=== PATIENT | male | born 1960 | race Caucasian/White ===

== ENCOUNTER 2017-12-13 12:38 | Emergency (ER) | payer SELFPAY ==
[~2017-12-13] VITALS: Ht 162.6 cm; Wt 73.5 kg
[~2017-12-13 12:38] MED LIST: CARV3.12 PO; FLUT1INH INH; METH750T2 PO; MOBI15TA PO
[2017-12-13 12:50] VITALS: BP 140/85; PULSE 75; RESP 18; TEMP 98.2; O2SAT 95
--- NOTE | 2017-12-13 13:50 | PD ---
HPI Chief Complaint: Respiratory Symptoms Time Seen by Provider: 13:41 Travel History International Travel<30 days: No Contact w/Intl Traveler<30days: No Traveled to known affect area: No History of Present Illness HPI 57-year-old male states over the past couple of days he's been having cough, congestion and shortness of breath. He states it fluctuates in intensity. He denies any other concurrent complaints. He states he feels worse when he moves around. He denies other modifying factors. He states he has not seen his physician for this yet. Quality is productive. Severity is intermittent in nature. He denies increased use in his inhaler use. PFSH Past Medical History Hx Anticoagulant Therapy: Yes (asa 81mg) Arthritis: No Asthma: No Autoimmune Disease: No Blood Disorders: No Anxiety: Yes (IN THE PAST) Depression: Yes Heart Rhythm Problems: No Cancer: No Cardiovascular Problems: Yes (hx of htn on no meds) High Cholesterol: Yes (MD TOLD HIM IT WAS HIGH BUT HE DID NOT TAKE ANY MEDS FOR THIS CONDITION) Chest Pain: Yes Congestive Heart Failure: No COPD: Yes Cerebrovascular Accident: Yes Diabetes: No Diminished Hearing: No Endocrine: No Gastrointestinal Disorders: No GERD: No Glaucoma: No Genitourinary: No Headaches: Yes Hepatitis: No Hiatal Hernia: No Hypertension: Yes Immune Disorder: No Implanted Vascular Access Dvce: No Kidney Stones: No Musculoskeletal: Yes Neurologic: Yes [facility] Reproductive: No Respiratory: Yes (copd) Immunizations Current: Yes Migraines: Yes Myocardial Infarction: No Renal Failure: No Seizures: No Sickle Cell Disease: No Sleep Apnea: No Thyroid Disease: No Ulcer: No Past Surgical History Abdominal Surgery: No AICD: No Appendectomy: No Arteriovenous Shunt: No Cardiac Surgery: No Cholecystectomy: No Ear Surgery: No Endocrine Surgery: No Eye Surgery: No Genitourinary Surgery: No Gynecologic Surgery: No Insulin Pump: No Joint Replacement: No Neurologic Surgery: Yes (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) Oral Surgery: No Pacemaker: No Thoracic Surgery: No Other Surgery: Yes Social History Alcohol Use: No Tobacco Use: Yes (1PPD) Substance Use: Yes (PAST ETOH ABUSE) Allergies-Medications (Allergen,Severity, Reaction): Coded Allergies: No Known Allergies (Verified Adverse Reaction, Unknown, 12/13/17) Reported Meds & Prescriptions Reported Meds & Active Scripts Active Ventolin Hfa 18 GM Inh (Albuterol Sulfate) 90 Mcg/Act Aer 2 Puff INH Q4-6H PRN Methocarbamol 750 Mg Tab 750 Mg PO QID Mobic (Meloxicam) 15 Mg Tab 15 Mg PO DAILY Reported Breo Ellipta 100-25 Mcg/INH (Fluticasone Furoate-Vilanterol) 1 Inh Inh Unknown Dose INH DAILY Carvedilol 3.125 mg (Carvedilol) 3.125 Mg Tab 3.125 Mg PO BID Review of Systems Except as stated in HPI: all other systems reviewed are Neg Physical Exam Narrative GENERAL: 57-year-old male in no apparent distress SKIN: Focused skin assessment warm/dry. HEAD: Atraumatic. Normocephalic. EYES: Pupils equal and round. No scleral icterus. No injection or drainage. ENT: No nasal bleeding or discharge. Mucous membranes pink and moist. Bilateral TMs clear, posterior oropharynx without exudate or erythema NECK: Trachea midline. No JVD. No meningeal signs CARDIOVASCULAR: Regular rate and rhythm. RESPIRATORY: No accessory muscle use. Clear to auscultation. Breath sounds equal bilaterally. GASTROINTESTINAL: Abdomen soft, non-tender, nondistended. MUSCULOSKELETAL: No obvious deformities. No clubbing. No cyanosis. No edema. NEUROLOGICAL: Awake and alert. No obvious cranial nerve deficits. Motor grossly within normal limits. Normal speech. Data Data Last Documented VS Vital Signs Date Time Temp Pulse Resp B/P (MAP) Pulse Ox O2 Delivery O2 Flow Rate FiO2 12/13/17 14:05 16 96 Room Air 12/13/17 12:50 98.2 75 140/85 (103) Orders Orders Chest, Pa & Lat (12/13/17 ) Influenzae A/B Antigen (12/13/17 13:41) Ed Discharge Order (12/13/17 14:38) MDM Medical Decision Making Medical Screen Exam Complete: Yes Emergency Medical Condition: Yes Medical Record Reviewed: Yes (past history confirmed) Interpretation(s) cxr no acute flu is negative Differential Diagnosis COPD, pneumonia, URI Narrative Course Will check chest x-ray and influenza and reevaluate ed workup no acute, Patient denies any new complaints, all questions answered. Patient knows that follow up is incumbent on them and to return to the emergency room immediately if new or worsening symptoms develop. Patient given strict return precautions, vitals reviewed and are normal, agrees to further workup as an outpatient. Diagnosis Primary Impression: Upper respiratory infection Qualified Codes: J06.9 - Acute upper respiratory infection, unspecified Additional Instructions: albuterol as needed, Stop smoking, return as needed, follow with primary this week, continue supportive care Med/Other Pt SpecificInfo: Prescription(s) given Scripts Albuterol 18 GM Inh (Ventolin Hfa 18 GM Inh) 90 Mcg/Act Aer 2 PUFF INH Q4-6H Y for SHORTNESS OF BREATH, #1 INHALER 0 Refills Prov: Mikki Kim MD 12/13/17 Disposition: 01 DISCHARGE HOME Condition: Stable Mikki Kmi MD Dec 13, 2017 13:50
--- NOTE | 2017-12-13 14:13 | RADRPT ---
EXAM DATE/TIME: 12/13/2017 13:51 [facility] COMPARISON: No previous studies available for comparison. INDICATIONS : Cough and flu like symptoms. MEDICAL HISTORY : Hypertension. Chronic obstructive pulmonary disease. SURGICAL HISTORY : None. ENCOUNTER: Initial ACUITY: 1 week PAIN SCORE: 0/10 LOCATION: Bilateral chest FINDINGS: Lungs are hyperaerated. There is no evidence of acute airspace disease or congestion. Heart and mediastinal structures are unremarkable. Osseous structures are intact. Postsurgical changes following cervical fusion are seen in the lower cervical spine. CONCLUSION: 1. COPD 2. No acute process. Sharif Osorio MD on December 13, 2017 at 14:08 Board Certified Radiologist. This report was verified electronically.
[2017-12-13] MEDS ORDERED: VENTAER INH (14:41)
[2017-12-14] MEDS ORDERED: PRED-503 PO (11:43)
[2017-12-14] MEDS ORDERED: AZIT250T3 PO (11:43)
== END 2017-12-13 14:50 | disposition home or self-care (01) ==
LOC: PHED 12:38
DX: J06.9 Acute upper respiratory infection, unspecified (principal); J44.9 Chronic obstructive pulmonary disease, unspecified; E78.00 Pure hypercholesterolemia, unspecified; I10 Essential (primary) hypertension; F32.9 Major depressive disorder, single episode, unspecified; F17.210 Nicotine dependence, cigarettes, uncomplicated; Z86.73 Personal history of transient ischemic attack (TIA), and cerebral infarction without residual deficits; Z79.82 Long term (current) use of aspirin
CPT/HCPCS: 71046; 87804; 99284

== ENCOUNTER 2017-12-14 10:11 | Emergency (ER) | payer SELFPAY ==
[~2017-12-14 10:11] MED LIST changes: +VENTAER INH
[2017-12-14 10:24] VITALS: BP 151/89; PULSE 88; RESP 20; TEMP 98.2; O2SAT 97
[2017-12-14] MEDS ORDERED: PRED-503 PO (11:43)
[2017-12-14] MEDS ORDERED: AZIT250T3 PO (11:43)
--- NOTE | 2017-12-14 11:43 | PD ---
HPI Chief Complaint: Respiratory Symptoms Time Seen by Provider: 11:26 Travel History International Travel<30 days: No Contact w/Intl Traveler<30days: No Traveled to known affect area: No History of Present Illness HPI Is a 57-year-old male presents to the emergency department complaining of worsening shortness of breath, cough and congestion, productive cough in the setting of COPD. Was seen yesterday in the ED had an x-ray that was negative and was given prescription for inhaler. States she is concerned that is not getting better. Was not put on steroids or antibiotics at that time. Still smokes. Otherwise has been feeling well. No other complaints. History Past Medical History Narrative Medical COPD Tetanus Vaccination: > 5 Years Social History Alcohol Use: No Tobacco Use: Yes (2 PPD) Allergies-Medications (Allergen,Severity, Reaction): Coded Allergies: No Known Allergies (Verified Adverse Reaction, Unknown, 12/13/17) Reported Meds & Prescriptions Reported Meds & Active Scripts Active Ventolin Hfa 18 GM Inh (Albuterol Sulfate) 90 Mcg/Act Aer 2 Puff INH Q4-6H PRN Review of Systems Except as stated in HPI: all other systems reviewed are Neg Physical Exam Narrative GENERAL: Well-appearing 57-year-old man, no acute distress. SKIN: Focused skin assessment warm/dry. HEAD: Atraumatic. Normocephalic. EYES: Pupils equal and round. No scleral icterus. No injection or drainage. ENT: No nasal bleeding or discharge. Mucous membranes pink and moist. NECK: Trachea midline. No JVD. CARDIOVASCULAR: Regular rate and rhythm. No murmur appreciated. RESPIRATORY: No accessory muscle use. Clear to auscultation. Breath sounds equal bilaterally. GASTROINTESTINAL: Abdomen soft, non-tender, nondistended. Hepatic and splenic margins not palpable. MUSCULOSKELETAL: No obvious deformities. No clubbing. No cyanosis. No edema. NEUROLOGICAL: Awake and alert. No obvious cranial nerve deficits. Motor grossly within normal limits. Normal speech. PSYCHIATRIC: Appropriate mood and affect; insight and judgment normal. Data Data Last Documented VS Vital Signs Date Time Temp Pulse Resp B/P (MAP) Pulse Ox O2 Delivery O2 Flow Rate FiO2 12/14/17 10:24 98.2 88 20 151/89 (109) 97 MDM Medical Decision Making Medical Screen Exam Complete: Yes Emergency Medical Condition: Yes Medical Record Reviewed: Yes Differential Diagnosis COPD exacerbation, URI, pneumonia, other Narrative Course 57-year-old man, COPD exacerbation, looks well, will recommend steroids antibiotics reassess. Diagnosis Primary Impression: COPD exacerbation Additional Instructions: Take antibiotics and steroids as prescribed. Continue rescue inhaler every 4-6 hours as needed. Follow with her primary doctor next week as discussed. Return to the emergency department for any new or worsening symptoms. Med/Other Pt SpecificInfo: Prescription(s) given Scripts Azithromycin (Azithromycin) 250 Mg Tab 250 MG PO DIRECTED for Infection, #6 TAB 0 Refills Take 2 tabs (500 mg) on day 1 then 1 tab daily x 4 days. Prov: Catarino Cade MD 12/14/17 Prednisone (Deltasone) 20 Mg Tab 20 MG PO BID for 10 Days, #20 TAB 0 Refills Prov: Catarino Cade MD 12/14/17 Disposition: 01 DISCHARGE HOME Condition: Stable Catarino Cade MD Dec 14, 2017 11:43
== END 2017-12-14 11:54 | disposition home or self-care (01) ==
LOC: NEPK 10:11
DX: J44.1 Chronic obstructive pulmonary disease with (acute) exacerbation (principal); F17.210 Nicotine dependence, cigarettes, uncomplicated
CPT/HCPCS: 99283